=== PATIENT | female | born 1985 | race Caucasian/White ===

== ENCOUNTER 2018-10-27 20:12 | Emergency (ER) | payer OTHER ==
[2018-10-27 20:19] VITALS: BP 104/68; PULSE 81; RESP 18; TEMP 98.2
--- NOTE | 2018-10-27 21:28 | XR ---
PROCEDURE: XR elbow complete RT - 3V DATE AND TIME: 10/27/2018 9:21 PM CLINICAL INDICATION: PHH; pain, redness, swelling TECHNIQUE: Department protocol COMPARISON: None FINDINGS: Bones and joints have normal appearance. There is prominent focal soft tissue swelling over the olecranon. No soft tissue emphysema. IMPRESSION: PROMINENT POSTERIOR SOFT TISSUE SWELLING.
--- NOTE | 2018-10-27 22:06 | ED ---
Skin/Abscess/FB HPI - General Chief complaint: Skin/Abscess/Foreign Body Stated complaint: Abcess on arm, [facility] Pt Time Seen by Provider: 10/27/18 20:23 Source: patient Mode of arrival: ambulatory Limitations: no limitations - History of Present Illness Initial comments: Patient is a 33-year-old female presenting to emergency Department with comp laints of a possible infection on her right elbow times one week. Patient states she is at [place] and have the nurses evaluate her right elbow. Patient states approximately 3 weeks ago she fell onto her right elbow and had a small abrasion there. Approximately one week ago she started having pain, swelling, and erythema to the area. Patient states they started her on Bactrim and she has been on that for 5 days. Patient is afraid the infection is not getting any better. Patient denies fever, chills, abdominal pain, nausea, vomiting. Patient has no other complaints at this time. Upon arrival to ER, vital signs are stable, afebrile. - Related Data Previous Rx's Medication Instructions Recorded Sulfamethox-Tmp 800-160Mg [Bactrim 1 each PO Q12HR 4 Days #8 tab 10/27/18 Ds] Allergies Allergy/AdvReac Type Severity Reaction Status Date / Time No Known Allergies Allergy Verified 10/27/18 20:19 Review of Systems ROS Statement: Those systems with pertinent positive or pertinent negative responses have been documented in the HPI. ROS Other: All systems not noted in ROS Statement are negative. Past Medical History Past Medical History: No Reported History History of Any Multi-Drug Resistant Organisms: None Reported Past Surgical History: Section Past Psychological History: No Psychological Hx Reported Smoking Status: Current every day smoker Past Alcohol Use History: Abuse, Daily Past Drug Use History: None Reported General Exam - General Exam Comments Initial Comments: GENERAL: Well-appearing, well-nourished and in no acute distress. HEAD: Atraumatic, normocephalic. EYES: Pupils equal round and reactive to light, extraocular movements intact, sclera anicteric, conjunctiva are normal. ENT: TMs normal, nares patent, oropharynx clear without exudates. Moist mucous membranes. NECK: Normal range of motion, supple without lymphadenopathy or JVD. LUNGS: Breath sounds clear to auscultation bilaterally and equal. No wheezes rales or rhonchi. HEART: Regular rate and rhythm without murmurs, rubs or gallops. ABDOMEN: Soft, nontender, normoactive bowel sounds. No guarding, no rebound. No masses appreciated. : Deferred EXTREMITIES: Right elbow has full range of motion. Olecranon bursa is erythematous, painful to the touch. There is a small area of fluctuance and mild edema. No clubbing or cyanosis. There is no erythema outside of the bursa area. NEUROLOGICAL: Cranial nerves II through XII grossly intact. Normal speech, normal gait. PSYCH: Normal mood, normal affect. SKIN: Warm, Dry, normal turgor, no rashes or lesions noted. Limitations: no limitations Course Vital Signs 10/27/18 20:15 Temperature 98.2 F Pulse Rate 81 Respiratory 18 Rate Blood Pressure 104/68 O2 Sat by Pulse 97 Oximetry Medical Decision Making - Medical Decision Making Patient is a 33-year-old female presenting with olecranon bursitis of the right elbow. Patient states she hit her elbow approximately 3 weeks ago and then one week ago started having pain, erythema, swelling of the right elbow. Patient has been on Bactrim for approximately 5 days and is afraid it is not improving. X-rays reveal no bony changes, soft tissue swelling over the right olecranon. Patient will continue with Bactrim for a total of 14 days. Patient is stable for discharge at this time. Return parameters were discussed with the patient she verbalized understanding. There is an Olivier wrap applied to the right elbow with improvement in symptoms. Patient is in agreement with this plan of care. Case discussed with Dr. Clements. Disposition Clinical Impression: Olecranon bursitis, right elbow Disposition: HOME SELF-CARE Condition: Stable Instructions (If sedation given, give patient instructions): Elbow Bursitis (ED) Additional Instructions: Please return to the Emergency Department if symptoms worsen or any other concerns. Complete Bactrim for a total of 14 days. Prescriptions: Sulfamethox-Tmp 800-160Mg [Bactrim Ds] 1 each PO Q12HR 4 Days #8 tab Is patient prescribed a controlled substance at d/c from ED?: No Referrals: None,Stated [Primary Care Provider] - 1-2 days
== END 2018-10-27 22:22 | disposition home or self-care (01) ==
LOC: EC 20:12
DX: M70.21 Olecranon bursitis, right elbow (principal); F17.200 Nicotine dependence, unspecified, uncomplicated
CPT/HCPCS: 99283